=== PATIENT | male | born 1955 | race Caucasian/White ===

== ENCOUNTER 2018-06-12 07:07 | Day surgery (SDC) | payer MEDICARE, OTHER ==
[2018-06-12] MEDS: INSULIN REGULAR, HUMAN 100 UNIT/1 ML 3ML VIAL SC (09:13)
[2018-06-12 10:01] LABS: ANION GAP 14 (5-13); BLOOD UREA NITROGEN 61 mg/dl (7-20); CALCIUM 8.5 mg/dl (8.4-10.2); CARBON DIOXIDE 27 mmol/L (21-31); CHLORIDE 98 mmol/L (97-110); CREATININE 8.13 mg/dl (0.61-1.24); Estimated GFR 7 mL/min (>60); GLUCOSE 272 mg/dl (70-220); SODIUM 139 mmol/L (135-144)
[2018-06-12] MEDS ORDERED: THROMBIN 5000 UNIT VIAL (10:18)
[2018-06-12] MEDS ORDERED: MIDAZOLAM 1 MG/ML 2 ML INJ (10:23)
[2018-06-12] MEDS ORDERED: ROPIVACAINE 0.5 % 30 ML VIAL (10:25)
[2018-06-12] MEDS ORDERED: KETAMINE (50 MG/ML) 10 ML VIAL (10:56)
[2018-06-12] MEDS: LIDOCAINE 1% (STERILE-PAK) 30 ML INJ (10:58)
[2018-06-12] MEDS: GELATIN SIZE 100 SPONGE (11:05)
[2018-06-12] MEDS: HEPARIN 1000 UNITS/ML 10 ML INJ IRR (11:06)
[2018-06-12] MEDS ORDERED: ETOMIDATE 20 MG INJ (11:39)
[2018-06-12] MEDS ORDERED: CEFAZOLIN 1 GM INJ (11:39)
[2018-06-12] MEDS ORDERED: LIDOCAINE 2% (SDV) 5 ML INJ (11:39)
[2018-06-12] MEDS ORDERED: LABETALOL HCL 20MG INJ IV (12:00)
[2018-06-12] MEDS ORDERED: NALOXONE (0.4 MG/ML) INJ IV (12:00)
[2018-06-12] MEDS ORDERED: HYDROmorphONE 1 MG/5 ML IV SYRINGE IV ×2 (12:00→12:10)
[2018-06-12] MEDS ORDERED: hydrALAzine 20 MG INJ IV (12:00)
[2018-06-12] MEDS ORDERED: ONDANSETRON 4 MG INJ IV (12:00)
[2018-06-12] MEDS ORDERED: DIPHENHYDRAMINE 50 MG INJ IV (12:00)
[2018-06-12] MEDS ORDERED: METOCLOPRAMIDE 10 MG INJ IV (12:00)
[2018-06-12] MEDS: HYDROmorphONE 1 MG/5 ML IV SYRINGE IV ×2 (12:26→12:37)
[2018-06-12] MEDS: FENTAnyl 50 MCG/ML VIAL IV (12:40)
== END 2018-06-12 14:20 | disposition home or self-care (01) ==
LOC: SDS 07:07
DX: I12.0 Hypertensive chronic kidney disease with stage 5 chronic kidney disease or end stage renal disease (principal); E11.22 Type 2 diabetes mellitus with diabetic chronic kidney disease; N18.6 End stage renal disease; Z99.2 Dependence on renal dialysis
CPT/HCPCS: 36821; 80048; 82962

== ENCOUNTER 2018-07-11 08:45 | Day surgery (SDC) | payer MEDICARE, OTHER ==
[2018-07-11 09:46] LABS: ADD MAN DIFF? NO
[2018-07-11 09:49] LABS: WHITE BLOOD COUNT 8.3 10^3/ul (4.8-10.8)
[2018-07-11 09:49] LABS: BASOPHIL # 0.1 10^3/ul (0.0-0.1); EOSINOPHILS # 0.3 10^3/ul (0.0-0.5); EOSINOPHILS % 3.8 % (0.0-7.0); HEMOGLOBIN 9.6 g/dl (14.0-18.0); LYMPHOCYTES # 2.2 10^3/ul (0.8-2.9); LYMPHOCYTES % 26.2 % (15.0-51.0); MEAN CORPUSCULAR HEMOGLOBIN 30.9 pg (29.0-33.0); MEAN CORPUSCULAR HGB CONC 33.1 g/dl (32.0-37.0); MEAN CORPUSCULAR VOLUME 93.2 fl (82.0-101.0); MEAN PLATELET VOLUME 11.1 fl (7.4-10.4); MONOCYTES % 11.6 % (0.0-11.0); NEUTROPHIL # 4.7 10^3/ul (1.6-7.5); NEUTROPHILS % 56.3 % (39.0-77.0); PLATELET COUNT 288 10^3/UL (140-415); RED BLOOD COUNT 3.11 10^6/ul (4.70-6.10); RED CELL DISTRIBUTION WIDTH 14.2 % (11.5-14.5)
[2018-07-11] MEDS: INSULIN REGULAR, HUMAN 100 UNIT/1 ML 3ML VIAL SC ×2 (09:57→10:18)
[2018-07-11 09:58] LABS: HOLD TRANSMISSIONS 1
[2018-07-11 10:07] LABS: ALANINE AMINOTRANSFERASE 11 IU/L (13-69); ALBUMIN 4.1 g/dl (3.3-4.9); ALBUMIN/GLOBULIN RATIO 1.07; ALKALINE PHOSPHATASE 139 IU/L (42-121); ANION GAP 15 (5-13); ASPARTATE AMINO TRANSFERASE 14 IU/L (15-46); BILIRUBIN,INDIRECT 0.7 mg/dl (0-1.1); BILIRUBIN,TOTAL 0.7 mg/dl (0.2-1.3); CALCIUM 8.6 mg/dl (8.4-10.2); CARBON DIOXIDE 33 mmol/L (21-31); CHLORIDE 89 mmol/L (97-110); Estimated GFR 12 mL/min (>60); GLUCOSE 290 mg/dl (70-220); POTASSIUM 4.5 mmol/L (3.5-5.1); SODIUM 137 mmol/L (135-144); TOTAL PROTEIN 7.9 g/dl (6.1-8.1)
[2018-07-11 10:09] LABS: INR 0.99; PROTIME 13.2 Sec (11.9-14.9)
[2018-07-11 10:10] LABS: PARTIAL THROMBOPLASTIN TIME 29.5 Sec (23.0-35.0)
[2018-07-11 10:15] LABS: BLOOD UREA NITROGEN 33 mg/dl (7-20); CREATININE 4.98 mg/dl (0.61-1.24)
[2018-07-11] MEDS ORDERED: LIDOCAINE 1% (STERILE-PAK) 30 ML INJ (10:42)
[2018-07-11] MEDS ORDERED: HEPARIN 1000 UNITS/ML 10 ML INJ (10:42)
[2018-07-11] MEDS ORDERED: GELATIN SIZE 100 SPONGE (10:42)
[2018-07-11] MEDS ORDERED: THROMBIN 5000 UNIT VIAL (10:42)
[2018-07-11] MEDS ORDERED: CLINDAMYCIN 900 MG/D5W (PMX) 50 ML IVPB (11:10)
[2018-07-11] MEDS ORDERED: PROPOFOL 20 ML (11:10)
[2018-07-11] MEDS: LIDOCAINE 1% (MPF) 30 ML INJ INJ (11:10)
[2018-07-11] MEDS ORDERED: LIDOCAINE 2% (SDV) 5 ML INJ (11:10)
[2018-07-11] MEDS: HEPARIN 1000 UNITS/ML 10 ML INJ IRR (11:10)
[2018-07-11] MEDS ORDERED: MEPERIDINE 100 MG INJ (11:42)
[2018-07-11] MEDS ORDERED: ONDANSETRON 4 MG INJ (11:46)
[2018-07-11] MEDS ORDERED: PHENYLephrine (100 MCG/ML) 5ML SYG (12:21)
[2018-07-11] MEDS ORDERED: EPHEDrine SULFATE 50 MG/5 ML SYG (12:21)
[2018-07-11] MEDS ORDERED: hydrALAzine 20 MG INJ IV (13:00)
[2018-07-11] MEDS ORDERED: MEPERIDINE 25 MG INJ IV (13:00)
[2018-07-11] MEDS ORDERED: FENTAnyl 50 MCG/ML VIAL IV ×2 (13:00)
[2018-07-11] MEDS ORDERED: MIDAZOLAM 1 MG/ML 2 ML INJ IV (13:00)
[2018-07-11] MEDS ORDERED: DIPHENHYDRAMINE 50 MG INJ IV (13:00)
[2018-07-11] MEDS ORDERED: HYDROmorphONE 1 MG/5 ML IV SYRINGE IV ×2 (13:00)
[2018-07-11] MEDS ORDERED: OXYCODONE/ACETAMINOPHEN (5/325) TAB PO (13:00)
[2018-07-11] MEDS ORDERED: METOCLOPRAMIDE 10 MG INJ IV (13:00)
[2018-07-11] MEDS ORDERED: LABETALOL HCL 20MG INJ IV (13:00)
[2018-07-11] MEDS ORDERED: ONDANSETRON 4 MG INJ IV (13:00)
[2018-07-11] MEDS ORDERED: EPHEDrine SULFATE 50 MG/5 ML SYG IV (13:00)
[2018-07-11] MEDS: OXYCODONE/ACETAMINOPHEN (5/325) TAB PO (14:18)
== END 2018-07-11 15:42 | disposition home or self-care (01) ==
LOC: SDS 08:45
DX: I12.0 Hypertensive chronic kidney disease with stage 5 chronic kidney disease or end stage renal disease (principal); N18.6 End stage renal disease; I10 Essential (primary) hypertension; E11.9 Type 2 diabetes mellitus without complications
CPT/HCPCS: 36821; 80053; 82962; 85025; 85610; 85730; 93005

== ENCOUNTER 2019-01-28 21:00 | Inpatient (IN) | payer MEDICARE, OTHER ==
[2019-01-29 02:37] LABS: ADD MAN DIFF? NO
[2019-01-29 02:41] LABS: ABNORMAL IP MESSAGE 1; BASOPHIL # 0.1 10^3/ul (0.0-0.1); BASOPHILS % 0.4 % (0.0-2.0); EOSINOPHILS # 0.1 10^3/ul (0.0-0.5); EOSINOPHILS % 0.4 % (0.0-7.0); HEMATOCRIT 30.7 % (42.0-52.0); HEMOGLOBIN 9.9 g/dl (14.0-18.0); LYMPHOCYTES # 0.5 10^3/ul (0.8-2.9); LYMPHOCYTES % 3.2 % (15.0-51.0); MEAN CORPUSCULAR HEMOGLOBIN 30.4 pg (29.0-33.0); MEAN CORPUSCULAR HGB CONC 32.2 g/dl (32.0-37.0); MEAN CORPUSCULAR VOLUME 94.2 fl (82.0-101.0); MEAN PLATELET VOLUME 11.1 fl (7.4-10.4); MONOCYTES % 6.4 % (0.0-11.0); NEUTROPHIL # 13.9 10^3/ul (1.6-7.5); NEUTROPHILS % 88.6 % (39.0-77.0); PLATELET COUNT 236 10^3/UL (140-415); POSITIVE DIFF @See below; RED BLOOD COUNT 3.26 10^6/ul (4.70-6.10); RED CELL DISTRIBUTION WIDTH 14.7 % (11.5-14.5)
[2019-01-29 02:41] LABS: WHITE BLOOD COUNT 15.7 10^3/ul (4.8-10.8)
[2019-01-29 03:00] LABS: INR 1.21; PROTIME 15.4 Sec (11.9-14.9); PT RATIO 1.2
[2019-01-29 03:01] LABS: ALANINE AMINOTRANSFERASE 41 IU/L (13-69); ALBUMIN 3.9 g/dl (3.3-4.9); ALKALINE PHOSPHATASE 352 IU/L (42-121); AMYLASE 83 U/L (11-123); ANION GAP 17 (5-13); ASPARTATE AMINO TRANSFERASE 31 IU/L (15-46); BILIRUBIN,INDIRECT 0.5 mg/dl (0-1.1); BILIRUBIN,TOTAL 0.5 mg/dl (0.2-1.3); BLOOD UREA NITROGEN 55 mg/dl (7-20); CARBON DIOXIDE 31 mmol/L (21-31); CHLORIDE 90 mmol/L (97-110); CREATININE 8.09 mg/dl (0.61-1.24); Estimated GFR 7 mL/min (>60); GLUCOSE 228 mg/dl (70-220); LIPASE 46 U/L (23-300); POTASSIUM 4.2 mmol/L (3.5-5.1); SODIUM 138 mmol/L (135-144); TOTAL PROTEIN 7.8 g/dl (6.1-8.1)
[2019-01-29 03:13] LABS: TROPONIN-I 0.078 ng/ml (0.000-0.120)
[2019-01-29 03:15] LABS: B-TYPE NATRIURETIC PEPTIDE 20600 PG/ML (0-125)
[2019-01-29] MEDS: CEFEPIME 2GM/50 ML (PMX) 50 ML IVPB (03:48)
[2019-01-29 04:00] LABS: ADD UMIC YES; UR ASCORBIC ACID NEGATIVE (NEGATIVE); UR BILIRUBIN (Dip) NEGATIVE (NEGATIVE); UR BLOOD (Dip) NEGATIVE (NEGATIVE); UR CLARITY CLEAR (CLEAR); UR COLOR YELLOW (YELLOW); UR GLUCOSE (Dip) 2+ mg/dL (NEGATIVE); UR KETONES (Dip) NEGATIVE (NEGATIVE); UR LEUKOCYTE ESTERASE (Dip) NEGATIVE Leu/ul (NEGATIVE); UR MUCUS FEW /HPF (NONE SEEN); UR NITRITE (Dip) NEGATIVE (NEGATIVE); UR RBC 2 /HPF (0-5); UR SPECIFIC GRAVITY (Dip) 1.017 (1.003-1.030); UR TOTAL PROTEIN (Dip) 3+ mg/dl (NEGATIVE); UR UROBILINOGEN (Dip) NEGATIVE (NEGATIVE); UR WBC 4 /HPF (0-5)
[2019-01-29] MEDS ORDERED: ACETAMINOPHEN 325 MG TAB PO ×2 (04:00→07:00)
[2019-01-29] MEDS ORDERED: ONDANSETRON 4 MG INJ IV ×2 (04:00→07:00)
[2019-01-29] MEDS: VANCOMYCIN 1 GM (PMX) 250 ML IVPB (04:11)
[2019-01-29 06:22] LABS: INR 1.25; PROTIME 15.8 Sec (11.9-14.9); PT RATIO 1.2
[2019-01-29 06:23] LABS: PARTIAL THROMBOPLASTIN TIME 31.2 Sec (23.0-35.0)
[2019-01-29 06:24] LABS: LACTIC ACID 1.5 mmol/L (0.5-2.0)
[2019-01-29] MEDS ORDERED: NITROGLYCERIN (SL) 0.4 MG TAB SL (07:00)
[2019-01-29] MEDS ORDERED: NON-FORMULARY/PATIENT OWN MED (Insulin Lispro (Humalog Kwikpen U-100) 5 UNIT) SQ (07:00)
[2019-01-29] MEDS ORDERED: NACL 0.9% 3 ML SYG IV (07:00)
[2019-01-29] MEDS ORDERED: ALBUTEROL/IPRATROPIUM (NEB) 3 ML AMP HHN (07:00)
[2019-01-29 08:14] LABS: CREATINE KINASE 102 IU/L (23-200)
[2019-01-29 08:27] LABS: CK INDEX 2.3; TROPONIN-I 0.079 ng/ml (0.000-0.120)
[2019-01-29] MEDS: CALCIUM ACETATE 667 MG CAP PO ×3 (08:56→17:51)
[2019-01-29] MEDS: FUROSEMIDE 40 MG TAB PO (08:57)
[2019-01-29] MEDS: NIFEdipine (XL) 30 MG TAB PO (08:57)
[2019-01-29] MEDS: HEPARIN 5,000 UNIT/1 ML VIAL SC ×2 (09:19→21:34)
[2019-01-29] MEDS ORDERED: GLUCOSE GEL 15 GRAM TUBE PO ×2 (10:00)
[2019-01-29] MEDS ORDERED: GLUCAGON 1 MG INJ IM (10:00)
[2019-01-29] MEDS ORDERED: GLUCOSE GEL 15 GRAM TUBE BUCCAL (10:00)
[2019-01-29] MEDS ORDERED: DEXTROSE 50% 50 ML SYRINGE IV ×2 (10:00)
[2019-01-29] MEDS: ALLOPURINOL 100 MG TAB PO (11:28)
[2019-01-29] MEDS: INSULIN ASPART [NOVOLOG] 3 ML PEN SC ×3 (12:33→21:00)
[2019-01-29] MEDS: LEVOFLOXACIN 500MG/D5W (PMX) 100 ML IVPB (12:35)
[2019-01-29] MEDS: RANITIDINE 150 MG TAB PO ×2 (13:02→21:17)
[2019-01-29] MEDS: FISH OIL 1,000 MG CAP PO ×2 (13:09→21:18)
[2019-01-29 13:13] LABS: HEPATITIS B SURFACE ANTIGEN NEGATIVE (NEGATIVE)
[2019-01-29 13:29] LABS: HEPATITIS B SURFACE ANTIBODY POSITIVE (NEGATIVE)
[2019-01-29 13:29] LABS: HEMOGLOBIN A1C 6.2 % (0-5.9)
[2019-01-29] MEDS ORDERED: VANCOMYCIN IV PER PHARMACY XX (18:30)
[2019-01-29] MEDS ORDERED: RANITIDINE 150 MG TAB PO (21:00)
[2019-01-29] MEDS: ATORVASTATIN 80 MG TAB PO (21:18)
[2019-01-29] MEDS: MIRTAZAPINE 15 MG TAB PO (21:18)
[2019-01-29] MEDS: TAMSULOSIN (SR) 0.4 MG CAP PO (21:19)
[2019-01-29] MEDS: INSULIN GLARGINE [LANTus] (100 UNITS/ML) SYG SC (21:35)
[2019-01-29] MEDS: VANCOMYCIN 500 MG (PMX) 100 ML IVPB (22:36)
[2019-01-30] MEDS: ACCU-CHEK XX (02:00)
[2019-01-30 06:46] LABS: ADD MAN DIFF? NO
[2019-01-30 06:48] LABS: WHITE BLOOD COUNT 8.3 10^3/ul (4.8-10.8)
[2019-01-30 06:48] LABS: BASOPHIL # 0.1 10^3/ul (0.0-0.1); BASOPHILS % 0.7 % (0.0-2.0); EOSINOPHILS # 0.1 10^3/ul (0.0-0.5); EOSINOPHILS % 1.6 % (0.0-7.0); HEMATOCRIT 27.3 % (42.0-52.0); HEMOGLOBIN 8.8 g/dl (14.0-18.0); LYMPHOCYTES # 0.7 10^3/ul (0.8-2.9); LYMPHOCYTES % 8.3 % (15.0-51.0); MEAN CORPUSCULAR HEMOGLOBIN 30.7 pg (29.0-33.0); MEAN CORPUSCULAR HGB CONC 32.2 g/dl (32.0-37.0); MEAN CORPUSCULAR VOLUME 95.1 fl (82.0-101.0); MEAN PLATELET VOLUME 11.4 fl (7.4-10.4); MONOCYTE # 0.7 10^3/ul (0.3-0.9); MONOCYTES % 8.1 % (0.0-11.0); NEUTROPHIL # 6.8 10^3/ul (1.6-7.5); NEUTROPHILS % 81.1 % (39.0-77.0); PLATELET COUNT 182 10^3/UL (140-415); RED BLOOD COUNT 2.87 10^6/ul (4.70-6.10); RED CELL DISTRIBUTION WIDTH 14.8 % (11.5-14.5)
[2019-01-30 07:14] LABS: ALANINE AMINOTRANSFERASE 34 IU/L (13-69); ALBUMIN 3.4 g/dl (3.3-4.9); ALKALINE PHOSPHATASE 282 IU/L (42-121); ANION GAP 13 (5-13); ASPARTATE AMINO TRANSFERASE 22 IU/L (15-46); BILIRUBIN,INDIRECT 0.5 mg/dl (0-1.1); BILIRUBIN,TOTAL 0.5 mg/dl (0.2-1.3); BLOOD UREA NITROGEN 40 mg/dl (7-20); CALCIUM 8.2 mg/dl (8.4-10.2); CARBON DIOXIDE 32 mmol/L (21-31); CHLORIDE 94 mmol/L (97-110); CHOLESTEROL 102 mg/dl (100-200); CREATININE 5.71 mg/dl (0.61-1.24); Estimated GFR 10 mL/min (>60); GLUCOSE 209 mg/dl (70-220); HDL CHOLESTEROL 17 mg/dl (30-78); LDL CHOLESTEROL,CALCULATED 49 mg/dl; MAGNESIUM 1.8 mg/dl (1.7-2.5); POTASSIUM 4.3 mmol/L (3.5-5.1); SODIUM 139 mmol/L (135-144); TOTAL PROTEIN 6.8 g/dl (6.1-8.1); TRIGLYCERIDES 181 mg/dl (0-149)
[2019-01-30] MEDS: INSULIN ASPART [NOVOLOG] 3 ML PEN SC ×5 (08:18→21:32)
[2019-01-30] MEDS: CALCIUM ACETATE 667 MG CAP PO ×3 (08:53→17:05)
[2019-01-30] MEDS: FISH OIL 1,000 MG CAP PO ×2 (08:54→21:06)
[2019-01-30] MEDS: ALLOPURINOL 100 MG TAB PO (08:55)
[2019-01-30] MEDS: FUROSEMIDE 40 MG TAB PO (08:55)
[2019-01-30] MEDS: NIFEdipine (XL) 30 MG TAB PO (08:55)
[2019-01-30] MEDS: HEPARIN 5,000 UNIT/1 ML VIAL SC ×2 (09:15→21:32)
[2019-01-30] MEDS: EPOETIN ALFA-EPBX (ESRD) 10,000 UNIT/ML VIAL SC (11:13)
[2019-01-30] MEDS: MEROPENEM 1 GM/50ML(PMX) 50 ML IVPB (11:22)
[2019-01-30] MEDS: MIRTAZAPINE 15 MG TAB PO (21:06)
[2019-01-30] MEDS: ATORVASTATIN 80 MG TAB PO (21:06)
[2019-01-30] MEDS: TAMSULOSIN (SR) 0.4 MG CAP PO (21:06)
[2019-01-30] MEDS: RANITIDINE 150 MG TAB PO (21:06)
[2019-01-30] MEDS: INSULIN GLARGINE [LANTus] (100 UNITS/ML) SYG SC (21:31)
[2019-01-31] MEDS: ACCU-CHEK XX (01:50)
[2019-01-31 05:18] LABS: ADD MAN DIFF? NO
[2019-01-31 05:48] LABS: ANION GAP 18 (5-13); BLOOD UREA NITROGEN 69 mg/dl (7-20); CALCIUM 8.4 mg/dl (8.4-10.2); CARBON DIOXIDE 26 mmol/L (21-31); CHLORIDE 92 mmol/L (97-110); CREATININE 7.69 mg/dl (0.61-1.24); Estimated GFR 7 mL/min (>60); GLUCOSE 125 mg/dl (70-220); MAGNESIUM 2.2 mg/dl (1.7-2.5); PHOSPHORUS 6.1 mg/dl (2.5-4.9); POTASSIUM 4.5 mmol/L (3.5-5.1); SODIUM 136 mmol/L (135-144)
[2019-01-31 05:51] LABS: VANCOMYCIN,RANDOM 10.3 ug/ml
[2019-01-31 06:52] LABS: WHITE BLOOD COUNT 7.6 10^3/ul (4.8-10.8)
[2019-01-31 06:52] LABS: BASOPHIL # 0.1 10^3/ul (0.0-0.1); BASOPHILS % 1.2 % (0.0-2.0); EOSINOPHILS # 0.4 10^3/ul (0.0-0.5); EOSINOPHILS % 5.1 % (0.0-7.0); HEMATOCRIT 27.9 % (42.0-52.0); HEMOGLOBIN 9.3 g/dl (14.0-18.0); LYMPHOCYTES # 1.2 10^3/ul (0.8-2.9); LYMPHOCYTES % 15.9 % (15.0-51.0); MEAN CORPUSCULAR HEMOGLOBIN 31.1 pg (29.0-33.0); MEAN CORPUSCULAR HGB CONC 33.3 g/dl (32.0-37.0); MEAN CORPUSCULAR VOLUME 93.3 fl (82.0-101.0); MEAN PLATELET VOLUME 11.9 fl (7.4-10.4); MONOCYTE # 0.9 10^3/ul (0.3-0.9); MONOCYTES % 11.6 % (0.0-11.0); NEUTROPHILS % 65.7 % (39.0-77.0); PLATELET COUNT 213 10^3/UL (140-415); RED BLOOD COUNT 2.99 10^6/ul (4.70-6.10); RED CELL DISTRIBUTION WIDTH 14.7 % (11.5-14.5)
[2019-01-31] MEDS: INSULIN ASPART [NOVOLOG] 3 ML PEN SC ×5 (07:55→20:54)
[2019-01-31] MEDS: NIFEdipine (XL) 30 MG TAB PO (08:10)
[2019-01-31] MEDS: CALCIUM ACETATE 667 MG CAP PO ×3 (08:10→17:39)
[2019-01-31] MEDS: ALLOPURINOL 100 MG TAB PO (08:12)
[2019-01-31] MEDS: FISH OIL 1,000 MG CAP PO ×2 (08:12→20:21)
[2019-01-31] MEDS: HEPARIN 5,000 UNIT/1 ML VIAL SC ×2 (08:14→20:22)
[2019-01-31] MEDS ORDERED: LEVOFLOXACIN 250MG/D5W (PMX) 50 ML IVPB (10:00)
[2019-01-31] MEDS ORDERED: CALCIUM CARBONATE 500 MG CHEW TAB PO (12:30)
[2019-01-31] MEDS: MEROPENEM 1 GM/50ML(PMX) 50 ML IVPB (13:50)
[2019-01-31] MEDS: VANCOMYCIN 1 GM 250 ML IVPB (14:27)
[2019-01-31] MEDS: EPOETIN ALFA-EPBX (ESRD) 10,000 UNIT/ML VIAL SC (16:19)
[2019-01-31] MEDS: TAMSULOSIN (SR) 0.4 MG CAP PO (20:21)
[2019-01-31] MEDS: ATORVASTATIN 80 MG TAB PO (20:21)
[2019-01-31] MEDS: RANITIDINE 150 MG TAB PO (20:21)
[2019-01-31] MEDS: MIRTAZAPINE 15 MG TAB PO (20:21)
[2019-01-31] MEDS: INSULIN GLARGINE [LANTus] (100 UNITS/ML) SYG SC (20:55)
[2019-02-01] MEDS: ACCU-CHEK XX (01:27)
[2019-02-01 06:24] LABS: ADD MAN DIFF? NO
[2019-02-01 06:34] LABS: BASOPHIL # 0.1 10^3/ul (0.0-0.1); EOSINOPHILS # 0.6 10^3/ul (0.0-0.5); EOSINOPHILS % 7.2 % (0.0-7.0); HEMATOCRIT 29.4 % (42.0-52.0); HEMOGLOBIN 9.4 g/dl (14.0-18.0); LYMPHOCYTES # 1.6 10^3/ul (0.8-2.9); LYMPHOCYTES % 19.4 % (15.0-51.0); MEAN CORPUSCULAR HEMOGLOBIN 29.9 pg (29.0-33.0); MEAN CORPUSCULAR VOLUME 93.6 fl (82.0-101.0); MEAN PLATELET VOLUME 11.5 fl (7.4-10.4); MONOCYTE # 1.1 10^3/ul (0.3-0.9); MONOCYTES % 13.5 % (0.0-11.0); NEUTROPHIL # 4.7 10^3/ul (1.6-7.5); NEUTROPHILS % 57.5 % (39.0-77.0); PLATELET COUNT 238 10^3/UL (140-415); RED BLOOD COUNT 3.14 10^6/ul (4.70-6.10)
[2019-02-01 06:34] LABS: WHITE BLOOD COUNT 8.1 10^3/ul (4.8-10.8)
[2019-02-01 07:06] LABS: ANION GAP 15 (5-13); BLOOD UREA NITROGEN 51 mg/dl (7-20); CALCIUM 8.6 mg/dl (8.4-10.2); CARBON DIOXIDE 26 mmol/L (21-31); CHLORIDE 97 mmol/L (97-110); CREATININE 6.19 mg/dl (0.61-1.24); Estimated GFR 9 mL/min (>60); GLUCOSE 135 mg/dl (70-220); POTASSIUM 5.1 mmol/L (3.5-5.1); SODIUM 138 mmol/L (135-144)
[2019-02-01] MEDS: INSULIN ASPART [NOVOLOG] 3 ML PEN SC ×5 (07:55→20:12)
[2019-02-01] MEDS: NIFEdipine (XL) 30 MG TAB PO (08:35)
[2019-02-01] MEDS: ALLOPURINOL 100 MG TAB PO (08:35)
[2019-02-01] MEDS: FISH OIL 1,000 MG CAP PO ×2 (08:35→20:11)
[2019-02-01] MEDS: CALCIUM ACETATE 667 MG CAP PO ×3 (08:35→17:46)
[2019-02-01] MEDS: HEPARIN 5,000 UNIT/1 ML VIAL SC ×2 (10:04→20:43)
[2019-02-01] MEDS: MEROPENEM 1 GM/50ML(PMX) 50 ML IVPB (11:24)
[2019-02-01] MEDS: GUAIFENESIN 20 MG/ML 5ML CUP PO (17:45)
[2019-02-01] MEDS: TAMSULOSIN (SR) 0.4 MG CAP PO (20:11)
[2019-02-01] MEDS: RANITIDINE 150 MG TAB PO (20:11)
[2019-02-01] MEDS: ATORVASTATIN 80 MG TAB PO (20:11)
[2019-02-01] MEDS: MIRTAZAPINE 15 MG TAB PO (20:11)
[2019-02-01] MEDS: INSULIN GLARGINE [LANTus] (100 UNITS/ML) SYG SC (20:43)
[2019-02-01] MEDS: CEPASTAT LOZENGE MT (21:41)
[2019-02-01] MEDS: ZOLPIDEM 5 MG TAB PO (21:41)
[2019-02-02] MEDS: ACCU-CHEK XX (01:50)
[2019-02-02 07:31] LABS: ADD MAN DIFF? NO
[2019-02-02 07:38] LABS: BASOPHIL # 0.1 10^3/ul (0.0-0.1); BASOPHILS % 1.1 % (0.0-2.0); EOSINOPHILS # 0.6 10^3/ul (0.0-0.5); EOSINOPHILS % 7.2 % (0.0-7.0); HEMOGLOBIN 9.8 g/dl (14.0-18.0); LYMPHOCYTES % 22.6 % (15.0-51.0); MEAN CORPUSCULAR HEMOGLOBIN 30.8 pg (29.0-33.0); MEAN CORPUSCULAR HGB CONC 32.7 g/dl (32.0-37.0); MEAN CORPUSCULAR VOLUME 94.3 fl (82.0-101.0); MEAN PLATELET VOLUME 11.4 fl (7.4-10.4); MONOCYTES % 11.5 % (0.0-11.0); NEUTROPHIL # 4.8 10^3/ul (1.6-7.5); NEUTROPHILS % 55.3 % (39.0-77.0); PLATELET COUNT 254 10^3/UL (140-415); RED BLOOD COUNT 3.18 10^6/ul (4.70-6.10)
[2019-02-02 07:38] LABS: WHITE BLOOD COUNT 8.8 10^3/ul (4.8-10.8)
[2019-02-02] MEDS: INSULIN ASPART [NOVOLOG] 3 ML PEN SC ×6 (07:55→21:00)
[2019-02-02 08:10] LABS: ANION GAP 15 (5-13); BLOOD UREA NITROGEN 69 mg/dl (7-20); CARBON DIOXIDE 24 mmol/L (21-31); CHLORIDE 98 mmol/L (97-110); CREATININE 8.02 mg/dl (0.61-1.24); Estimated GFR 7 mL/min (>60); GLUCOSE 84 mg/dl (70-220); POTASSIUM 5.8 mmol/L (3.5-5.1); SODIUM 137 mmol/L (135-144)
[2019-02-02 08:13] LABS: VANCOMYCIN,RANDOM 16.7 ug/ml
[2019-02-02] MEDS: ALLOPURINOL 100 MG TAB PO (08:18)
[2019-02-02] MEDS: NIFEdipine (XL) 30 MG TAB PO (08:19)
[2019-02-02] MEDS: CALCIUM ACETATE 667 MG CAP PO ×3 (08:19→17:21)
[2019-02-02] MEDS: FISH OIL 1,000 MG CAP PO ×2 (08:19→20:44)
[2019-02-02] MEDS: HEPARIN 5,000 UNIT/1 ML VIAL SC ×2 (08:22→21:01)
[2019-02-02] MEDS: MEROPENEM 1 GM/50ML(PMX) 50 ML IVPB (11:26)
[2019-02-02] MEDS: VANCOMYCIN 1 GM 250 ML IVPB (15:23)
[2019-02-02] MEDS: RANITIDINE 150 MG TAB PO (20:43)
[2019-02-02] MEDS: ATORVASTATIN 80 MG TAB PO (20:44)
[2019-02-02] MEDS: TAMSULOSIN (SR) 0.4 MG CAP PO (20:44)
[2019-02-02] MEDS: MIRTAZAPINE 15 MG TAB PO (20:44)
[2019-02-02] MEDS: INSULIN GLARGINE [LANTus] (100 UNITS/ML) SYG SC (21:01)
[2019-02-03] MEDS: ACCU-CHEK XX (02:00)
[2019-02-03] MEDS: ZOLPIDEM 5 MG TAB PO (02:29)
[2019-02-03 06:44] LABS: ADD MAN DIFF? NO
[2019-02-03 06:47] LABS: BASOPHIL # 0.1 10^3/ul (0.0-0.1); BASOPHILS % 1.1 % (0.0-2.0); EOSINOPHILS # 0.6 10^3/ul (0.0-0.5); HEMATOCRIT 29.9 % (42.0-52.0); HEMOGLOBIN 9.8 g/dl (14.0-18.0); LYMPHOCYTES # 1.8 10^3/ul (0.8-2.9); LYMPHOCYTES % 21.9 % (15.0-51.0); MEAN CORPUSCULAR HEMOGLOBIN 30.3 pg (29.0-33.0); MEAN CORPUSCULAR HGB CONC 32.8 g/dl (32.0-37.0); MEAN CORPUSCULAR VOLUME 92.6 fl (82.0-101.0); MEAN PLATELET VOLUME 11.2 fl (7.4-10.4); MONOCYTE # 0.9 10^3/ul (0.3-0.9); NEUTROPHIL # 4.5 10^3/ul (1.6-7.5); NEUTROPHILS % 55.3 % (39.0-77.0); PLATELET COUNT 260 10^3/UL (140-415); RED BLOOD COUNT 3.23 10^6/ul (4.70-6.10)
[2019-02-03 06:47] LABS: WHITE BLOOD COUNT 8.2 10^3/ul (4.8-10.8)
[2019-02-03 07:08] LABS: ANION GAP 17 (5-13); BLOOD UREA NITROGEN 85 mg/dl (7-20); CALCIUM 8.9 mg/dl (8.4-10.2); CARBON DIOXIDE 22 mmol/L (21-31); CHLORIDE 100 mmol/L (97-110); CREATININE 9.27 mg/dl (0.61-1.24); Estimated GFR 6 mL/min (>60); GLUCOSE 102 mg/dl (70-220); POTASSIUM 5.9 mmol/L (3.5-5.1); SODIUM 139 mmol/L (135-144)
[2019-02-03] MEDS: INSULIN ASPART [NOVOLOG] 3 ML PEN SC ×3 (07:55→17:19)
[2019-02-03] MEDS: FISH OIL 1,000 MG CAP PO (08:39)
[2019-02-03] MEDS: NIFEdipine (XL) 30 MG TAB PO (08:40)
[2019-02-03] MEDS: CALCIUM ACETATE 667 MG CAP PO ×3 (08:40→17:19)
[2019-02-03] MEDS: ALLOPURINOL 100 MG TAB PO (08:40)
[2019-02-03] MEDS: HEPARIN 5,000 UNIT/1 ML VIAL SC (08:46)
[2019-02-03 15:02] LABS: ANION GAP 12 (5-13); BLOOD UREA NITROGEN 39 mg/dl (7-20); CARBON DIOXIDE 28 mmol/L (21-31); CHLORIDE 99 mmol/L (97-110); Estimated GFR 12 mL/min (>60); GLUCOSE 172 mg/dl (70-220); POTASSIUM 4.5 mmol/L (3.5-5.1); SODIUM 139 mmol/L (135-144)
[2019-02-03] MEDS: EPOETIN ALFA-EPBX (ESRD) 10,000 UNIT/ML VIAL SC (17:00)
== END 2019-02-03 17:59 | disposition home or self-care (01) | DRG 871 ==
LOC: FTE 21:00 → TEL 01-29 03:55
PROC: 5A1D80Z Performance of Urinary Filtration, Prolonged Intermittent, 6-18 hours Per Day (ICD-10-PCS; principal; 2019-01-29)
DX: A40.1 Sepsis due to streptococcus, group B (principal); N18.6 End stage renal disease; I12.0 Hypertensive chronic kidney disease with stage 5 chronic kidney disease or end stage renal disease; N39.0 Urinary tract infection, site not specified; E10.22 Type 1 diabetes mellitus with diabetic chronic kidney disease; Z99.2 Dependence on renal dialysis; E10.621 Type 1 diabetes mellitus with foot ulcer; D63.1 Anemia in chronic kidney disease; M89.8X9 Other specified disorders of bone, unspecified site; E83.89 Other disorders of mineral metabolism; L97.519 Non-pressure chronic ulcer of other part of right foot with unspecified severity; E66.9 Obesity, unspecified; Z68.31 Body mass index [BMI] 31.0-31.9, adult; E10.42 Type 1 diabetes mellitus with diabetic polyneuropathy; K31.84 Gastroparesis; E10.43 Type 1 diabetes mellitus with diabetic autonomic (poly)neuropathy
CPT/HCPCS: 71046; 76705; 80048; 80053; 80061; 80202; 81001; 82150; 82550; 82553; 82962; 83036; 83605; 83690; 83735; 83880; 84100; 84484; 85025; 85610; 85730; 86706; 87040-91; 87070; 87086; 87340; 90935; 93005; 93306; 96365; 99285-25

== ENCOUNTER 2019-02-24 20:22 | Inpatient (IN) | payer MEDICARE, OTHER ==
[2019-02-24] MEDS: morphine 4 MG/ML VIAL IV (22:49)
[2019-02-24] MEDS: ONDANSETRON 4 MG INJ IV (22:49)
[2019-02-24] MEDS: SOD CHLORIDE 0.9% 500 ML IV (22:49)
[2019-02-24] MEDS: CLINDAMYCIN 900 MG/D5W (PMX) 50 ML IVPB (22:55)
[2019-02-24 22:58] LABS: ADD MAN DIFF? NO
[2019-02-24 23:06] LABS: ADD UMIC YES; UR ASCORBIC ACID NEGATIVE (NEGATIVE); UR BILIRUBIN (Dip) NEGATIVE (NEGATIVE); UR BLOOD (Dip) NEGATIVE (NEGATIVE); UR CLARITY CLOUDY (CLEAR); UR COLOR YELLOW (YELLOW); UR GLUCOSE (Dip) 3+ mg/dL (NEGATIVE); UR KETONES (Dip) NEGATIVE (NEGATIVE); UR LEUKOCYTE ESTERASE (Dip) NEGATIVE Leu/ul (NEGATIVE); UR NITRITE (Dip) NEGATIVE (NEGATIVE); UR RBC 3 /HPF (0-5); UR SPECIFIC GRAVITY (Dip) 1.018 (1.003-1.030); UR SQUAMOUS EPITHELIAL CELL MODERATE /HPF (FEW); UR TOTAL PROTEIN (Dip) 3+ mg/dl (NEGATIVE); UR UROBILINOGEN (Dip) NEGATIVE (NEGATIVE); UR WBC 23 /HPF (0-5)
[2019-02-24 23:07] LABS: BASOPHIL # 0.1 10^3/ul (0.0-0.1); BASOPHILS % 0.8 % (0.0-2.0); EOSINOPHILS # 0.5 10^3/ul (0.0-0.5); EOSINOPHILS % 4.6 % (0.0-7.0); HEMATOCRIT 31.9 % (42.0-52.0); HEMOGLOBIN 10.1 g/dl (14.0-18.0); LYMPHOCYTES # 1.6 10^3/ul (0.8-2.9); LYMPHOCYTES % 15.1 % (15.0-51.0); MEAN CORPUSCULAR HEMOGLOBIN 29.6 pg (29.0-33.0); MEAN CORPUSCULAR HGB CONC 31.7 g/dl (32.0-37.0); MEAN CORPUSCULAR VOLUME 93.5 fl (82.0-101.0); MEAN PLATELET VOLUME 10.3 fl (7.4-10.4); MONOCYTE # 1.2 10^3/ul (0.3-0.9); MONOCYTES % 11.1 % (0.0-11.0); NEUTROPHILS % 67.6 % (39.0-77.0); PLATELET COUNT 327 10^3/UL (140-415); RED BLOOD COUNT 3.41 10^6/ul (4.70-6.10); RED CELL DISTRIBUTION WIDTH 15.2 % (11.5-14.5)
[2019-02-24 23:07] LABS: WHITE BLOOD COUNT 10.4 10^3/ul (4.8-10.8)
[2019-02-24 23:34] LABS: ALANINE AMINOTRANSFERASE 20 IU/L (13-69); ALBUMIN 4.3 g/dl (3.3-4.9); ALKALINE PHOSPHATASE 251 IU/L (42-121); ANION GAP 15 (5-13); ASPARTATE AMINO TRANSFERASE 22 IU/L (15-46); BILIRUBIN,INDIRECT 0.4 mg/dl (0-1.1); BILIRUBIN,TOTAL 0.4 mg/dl (0.2-1.3); BLOOD UREA NITROGEN 33 mg/dl (7-20); CALCIUM 9.7 mg/dl (8.4-10.2); CARBON DIOXIDE 32 mmol/L (21-31); CHLORIDE 94 mmol/L (97-110); CREATININE 5.74 mg/dl (0.61-1.24); Estimated GFR 10 mL/min (>60); GLUCOSE 122 mg/dl (70-220); LIPASE 53 U/L (23-300); POTASSIUM 4.5 mmol/L (3.5-5.1); SODIUM 141 mmol/L (135-144); TOTAL PROTEIN 8.6 g/dl (6.1-8.1)
[2019-02-24] MEDS: VANCOMYCIN 1 GM (PMX) 250 ML IVPB (23:52)
[2019-02-25] MEDS ORDERED: ONDANSETRON 4 MG INJ IV (01:00)
[2019-02-25] MEDS ORDERED: ACETAMINOPHEN 325 MG TAB PO ×2 (01:00→02:30)
[2019-02-25] MEDS ORDERED: NACL 0.9% 3 ML SYG IV (02:30)
[2019-02-25] MEDS ORDERED: HYDROCODONE/APAP (5/325) TAB PO (02:30)
[2019-02-25] MEDS ORDERED: ALBUTEROL/IPRATROPIUM (NEB) 3 ML AMP HHN (02:30)
[2019-02-25] MEDS: CLINDAMYCIN 600 MG/D5W (PMX) 50 ML IVPB ×3 (03:13→17:48)
[2019-02-25] MEDS ORDERED: GLUCAGON 1 MG INJ IM (03:30)
[2019-02-25] MEDS ORDERED: DEXTROSE 50% 50 ML SYRINGE IV ×2 (03:30)
[2019-02-25] MEDS ORDERED: GLUCOSE GEL 15 GRAM TUBE BUCCAL (03:30)
[2019-02-25] MEDS ORDERED: GLUCOSE GEL 15 GRAM TUBE PO ×2 (03:30)
[2019-02-25] MEDS: [UNRECOGNIZED DRUG - OTHER] XX ×2 (05:31→17:42)
[2019-02-25 06:16] LABS: ADD MAN DIFF? NO
[2019-02-25 06:23] LABS: WHITE BLOOD COUNT 10.1 10^3/ul (4.8-10.8)
[2019-02-25 06:23] LABS: BASOPHIL # 0.1 10^3/ul (0.0-0.1); EOSINOPHILS # 0.5 10^3/ul (0.0-0.5); EOSINOPHILS % 4.9 % (0.0-7.0); HEMATOCRIT 27.4 % (42.0-52.0); HEMOGLOBIN 8.6 g/dl (14.0-18.0); LYMPHOCYTES # 1.7 10^3/ul (0.8-2.9); LYMPHOCYTES % 16.7 % (15.0-51.0); MEAN CORPUSCULAR HEMOGLOBIN 29.8 pg (29.0-33.0); MEAN CORPUSCULAR HGB CONC 31.4 g/dl (32.0-37.0); MEAN CORPUSCULAR VOLUME 94.8 fl (82.0-101.0); MEAN PLATELET VOLUME 10.6 fl (7.4-10.4); MONOCYTES % 10.3 % (0.0-11.0); NEUTROPHIL # 6.7 10^3/ul (1.6-7.5); NEUTROPHILS % 66.5 % (39.0-77.0); PLATELET COUNT 277 10^3/UL (140-415); RED BLOOD COUNT 2.89 10^6/ul (4.70-6.10)
[2019-02-25 06:50] LABS: ALANINE AMINOTRANSFERASE 19 IU/L (13-69); ALBUMIN 4.1 g/dl (3.3-4.9); ALKALINE PHOSPHATASE 215 IU/L (42-121); ANION GAP 14 (5-13); ASPARTATE AMINO TRANSFERASE 17 IU/L (15-46); BILIRUBIN,INDIRECT 0.4 mg/dl (0-1.1); BILIRUBIN,TOTAL 0.4 mg/dl (0.2-1.3); BLOOD UREA NITROGEN 37 mg/dl (7-20); CALCIUM 8.8 mg/dl (8.4-10.2); CARBON DIOXIDE 29 mmol/L (21-31); CHLORIDE 97 mmol/L (97-110); CREATININE 6.09 mg/dl (0.61-1.24); Estimated GFR 9 mL/min (>60); GLUCOSE 126 mg/dl (70-220); MAGNESIUM 1.7 mg/dl (1.7-2.5); PHOSPHORUS 4.8 mg/dl (2.5-4.9); POTASSIUM 4.9 mmol/L (3.5-5.1); SODIUM 140 mmol/L (135-144); TOTAL PROTEIN 7.5 g/dl (6.1-8.1)
[2019-02-25] MEDS: INSULIN ASPART [NOVOLOG] 3 ML PEN SC ×7 (08:00→21:00)
[2019-02-25] MEDS: CITALOPRAM 10 MG TAB PO (08:11)
[2019-02-25] MEDS: FISH OIL 1,000 MG CAP PO ×2 (08:12→21:16)
[2019-02-25] MEDS: HYDROCODONE/APAP (5/325) TAB PO ×2 (08:13→21:10)
[2019-02-25] MEDS: ALLOPURINOL 100 MG TAB PO (08:13)
[2019-02-25] MEDS: CALCIUM ACETATE 667 MG CAP PO ×3 (08:14→17:44)
[2019-02-25] MEDS: HEPARIN 5,000 UNIT/1 ML VIAL SC ×2 (08:17→21:20)
[2019-02-25] MEDS: NIFEdipine (XL) 30 MG TAB PO (08:23)
[2019-02-25] MEDS: FUROSEMIDE 40 MG TAB PO (08:23)
[2019-02-25] MEDS ORDERED: NON-FORMULARY/PATIENT OWN MED (Omega-3/Dha/Epa/Fish Oil (Fish Oil 1,000 Mg Softgel) 1 EACH PO (09:00)
[2019-02-25] MEDS: ONDANSETRON 4 MG INJ IV (14:52)
[2019-02-25 19:28] LABS: HEPATITIS B SURFACE ANTIGEN NEGATIVE (NEGATIVE)
[2019-02-25] MEDS ORDERED: INSULIN GLARGINE [LANtus] 3 ML PEN SC (21:00)
[2019-02-25] MEDS: TAMSULOSIN (SR) 0.4 MG CAP PO (21:16)
[2019-02-25] MEDS: RANITIDINE 150 MG TAB PO (21:16)
[2019-02-25] MEDS: MIRTAZAPINE 15 MG TAB PO (21:16)
[2019-02-25] MEDS: ATORVASTATIN 80 MG TAB PO (21:16)
[2019-02-25] MEDS: INSULIN GLARGINE [LANTus] (100 UNITS/ML) SYG SC (21:22)
[2019-02-26] MEDS: ACCU-CHEK XX (02:00)
[2019-02-26] MEDS: CLINDAMYCIN 600 MG/D5W (PMX) 50 ML IVPB ×2 (03:09→12:35)
[2019-02-26] MEDS: [UNRECOGNIZED DRUG - OTHER] XX ×2 (05:09→17:22)
[2019-02-26 06:02] LABS: ADD MAN DIFF? NO
[2019-02-26 06:15] LABS: BASOPHIL # 0.1 10^3/ul (0.0-0.1); BASOPHILS % 0.9 % (0.0-2.0); EOSINOPHILS # 0.4 10^3/ul (0.0-0.5); HEMATOCRIT 27.5 % (42.0-52.0); HEMOGLOBIN 8.2 g/dl (14.0-18.0); LYMPHOCYTES # 2.1 10^3/ul (0.8-2.9); LYMPHOCYTES % 19.4 % (15.0-51.0); MEAN CORPUSCULAR HGB CONC 29.8 g/dl (32.0-37.0); MEAN CORPUSCULAR VOLUME 97.2 fl (82.0-101.0); MEAN PLATELET VOLUME 10.5 fl (7.4-10.4); MONOCYTES % 9.8 % (0.0-11.0); NEUTROPHIL # 6.9 10^3/ul (1.6-7.5); PLATELET COUNT 274 10^3/UL (140-415); RED BLOOD COUNT 2.83 10^6/ul (4.70-6.10); RED CELL DISTRIBUTION WIDTH 15.5 % (11.5-14.5)
[2019-02-26 06:15] LABS: WHITE BLOOD COUNT 10.7 10^3/ul (4.8-10.8)
[2019-02-26 06:52] LABS: ANION GAP 16 (5-13); BLOOD UREA NITROGEN 56 mg/dl (7-20); CALCIUM 8.7 mg/dl (8.4-10.2); CARBON DIOXIDE 27 mmol/L (21-31); CHLORIDE 93 mmol/L (97-110); CREATININE 8.25 mg/dl (0.61-1.24); Estimated GFR 7 mL/min (>60); GLUCOSE 95 mg/dl (70-220); MAGNESIUM 1.8 mg/dl (1.7-2.5); PHOSPHORUS 6.2 mg/dl (2.5-4.9); POTASSIUM 5.7 mmol/L (3.5-5.1); SODIUM 136 mmol/L (135-144)
[2019-02-26] MEDS: INSULIN ASPART [NOVOLOG] 3 ML PEN SC ×7 (08:21→21:00)
[2019-02-26] MEDS: CALCIUM ACETATE 667 MG CAP PO ×3 (08:23→17:25)
[2019-02-26] MEDS: HEPARIN 5,000 UNIT/1 ML VIAL SC ×2 (09:00→21:11)
[2019-02-26] MEDS: CITALOPRAM 10 MG TAB PO (12:31)
[2019-02-26] MEDS: FISH OIL 1,000 MG CAP PO ×2 (12:31→21:08)
[2019-02-26] MEDS: NIFEdipine (XL) 30 MG TAB PO (12:32)
[2019-02-26] MEDS: ALLOPURINOL 100 MG TAB PO (12:32)
[2019-02-26] MEDS: FUROSEMIDE 40 MG TAB PO (12:33)
[2019-02-26] MEDS: HYDROCODONE/APAP (5/325) TAB PO (12:40)
[2019-02-26] MEDS ORDERED: VANCOMYCIN IV PER PHARMACY XX (15:30)
[2019-02-26 16:11] LABS: VANCOMYCIN,RANDOM 14.7 ug/ml
[2019-02-26] MEDS: [UNRECOGNIZED DRUG - OTHER] XX (16:21)
[2019-02-26] MEDS: MUPIROCIN 2% 22 GM OINT TOP (16:30)
[2019-02-26] MEDS: VANCOMYCIN 1 GM 250 ML IVPB (21:05)
[2019-02-26] MEDS: RANITIDINE 150 MG TAB PO (21:08)
[2019-02-26] MEDS: TAMSULOSIN (SR) 0.4 MG CAP PO (21:08)
[2019-02-26] MEDS: ATORVASTATIN 80 MG TAB PO (21:08)
[2019-02-26] MEDS: MIRTAZAPINE 15 MG TAB PO (21:08)
[2019-02-26] MEDS: INSULIN GLARGINE [LANTus] (100 UNITS/ML) SYG SC (21:16)
[2019-02-26] MEDS: BACITRACIN 0.5%/ZINC 28.35 GM OINT TOP (21:17)
[2019-02-27] MEDS: ACCU-CHEK XX ×2 (02:00→23:43)
[2019-02-27] MEDS: HYDROCODONE/APAP (5/325) TAB PO ×2 (06:10→22:31)
[2019-02-27] MEDS: INSULIN ASPART [NOVOLOG] 3 ML PEN SC ×7 (08:00→20:47)
[2019-02-27] MEDS: FISH OIL 1,000 MG CAP PO ×2 (08:27→20:24)
[2019-02-27] MEDS: CITALOPRAM 10 MG TAB PO (08:27)
[2019-02-27] MEDS: ALLOPURINOL 100 MG TAB PO (08:27)
[2019-02-27] MEDS: CALCIUM ACETATE 667 MG CAP PO ×3 (08:27→17:19)
[2019-02-27] MEDS: HEPARIN 5,000 UNIT/1 ML VIAL SC ×2 (08:30→20:25)
[2019-02-27] MEDS: NIFEdipine (XL) 30 MG TAB PO ×2 (08:31→08:37)
[2019-02-27] MEDS: FUROSEMIDE 40 MG TAB PO (08:32)
[2019-02-27] MEDS: MUPIROCIN 2% 22 GM OINT TOP ×2 (08:40→20:46)
[2019-02-27] MEDS: BACITRACIN 0.5%/ZINC 28.35 GM OINT TOP ×2 (08:40→20:47)
[2019-02-27] MEDS: RANITIDINE 150 MG TAB PO (20:21)
[2019-02-27] MEDS: TAMSULOSIN (SR) 0.4 MG CAP PO (20:22)
[2019-02-27] MEDS: MIRTAZAPINE 15 MG TAB PO (20:23)
[2019-02-27] MEDS: ATORVASTATIN 80 MG TAB PO (20:24)
[2019-02-27] MEDS: INSULIN GLARGINE [LANTus] (100 UNITS/ML) SYG SC (20:33)
[2019-02-27] MEDS: EPOETIN ALFA-EPBX (ESRD) 10,000 UNIT/ML VIAL SC (22:33)
[2019-02-28 05:28] LABS: ADD MAN DIFF? NO
[2019-02-28 05:34] LABS: WHITE BLOOD COUNT 9.4 10^3/ul (4.8-10.8)
[2019-02-28 05:34] LABS: BASOPHIL # 0.1 10^3/ul (0.0-0.1); EOSINOPHILS # 0.7 10^3/ul (0.0-0.5); EOSINOPHILS % 7.5 % (0.0-7.0); HEMATOCRIT 28.1 % (42.0-52.0); HEMOGLOBIN 8.8 g/dl (14.0-18.0); LYMPHOCYTES # 1.7 10^3/ul (0.8-2.9); LYMPHOCYTES % 18.1 % (15.0-51.0); MEAN CORPUSCULAR HEMOGLOBIN 29.4 pg (29.0-33.0); MEAN CORPUSCULAR HGB CONC 31.3 g/dl (32.0-37.0); MEAN PLATELET VOLUME 10.6 fl (7.4-10.4); MONOCYTE # 0.9 10^3/ul (0.3-0.9); NEUTROPHIL # 5.8 10^3/ul (1.6-7.5); NEUTROPHILS % 61.7 % (39.0-77.0); PLATELET COUNT 293 10^3/UL (140-415); RED BLOOD COUNT 2.99 10^6/ul (4.70-6.10); RED CELL DISTRIBUTION WIDTH 15.4 % (11.5-14.5)
[2019-02-28 06:36] LABS: ANION GAP 15 (5-13); BLOOD UREA NITROGEN 59 mg/dl (7-20); CALCIUM 8.8 mg/dl (8.4-10.2); CARBON DIOXIDE 26 mmol/L (21-31); CHLORIDE 95 mmol/L (97-110); CREATININE 8.56 mg/dl (0.61-1.24); Estimated GFR 6 mL/min (>60); GLUCOSE 100 mg/dl (70-220); POTASSIUM 5.1 mmol/L (3.5-5.1); SODIUM 136 mmol/L (135-144)
[2019-02-28] MEDS: CALCIUM ACETATE 667 MG CAP PO ×3 (07:35→17:21)
[2019-02-28] MEDS: INSULIN ASPART [NOVOLOG] 3 ML PEN SC ×7 (07:35→21:00)
[2019-02-28] MEDS: FISH OIL 1,000 MG CAP PO ×3 (09:00→20:53)
[2019-02-28] MEDS: NIFEdipine (XL) 30 MG TAB PO ×2 (09:00→13:27)
[2019-02-28] MEDS: ALLOPURINOL 100 MG TAB PO ×2 (09:00→13:27)
[2019-02-28] MEDS: HEPARIN 5,000 UNIT/1 ML VIAL SC ×3 (09:00→20:57)
[2019-02-28] MEDS: CITALOPRAM 10 MG TAB PO ×2 (09:00→13:28)
[2019-02-28] MEDS: FUROSEMIDE 40 MG TAB PO ×2 (09:00→13:28)
[2019-02-28] MEDS: MUPIROCIN 2% 22 GM OINT TOP ×2 (13:32→21:02)
[2019-02-28] MEDS: BACITRACIN 0.5%/ZINC 28.35 GM OINT TOP ×2 (13:35→21:00)
[2019-02-28] MEDS: HYDROCODONE/APAP (5/325) TAB PO (15:30)
[2019-02-28] MEDS: ATORVASTATIN 80 MG TAB PO (20:52)
[2019-02-28] MEDS: TAMSULOSIN (SR) 0.4 MG CAP PO (20:53)
[2019-02-28] MEDS: MIRTAZAPINE 15 MG TAB PO (20:53)
[2019-02-28] MEDS: RANITIDINE 150 MG TAB PO (20:53)
[2019-02-28] MEDS: INSULIN GLARGINE [LANTus] (100 UNITS/ML) SYG SC (20:58)
[2019-03-01] MEDS: ACCU-CHEK XX (02:00)
[2019-03-01] MEDS: HYDROCODONE/APAP (5/325) TAB PO ×2 (02:28→10:41)
[2019-03-01 05:23] LABS: ADD MAN DIFF? NO
[2019-03-01 05:31] LABS: WHITE BLOOD COUNT 9.8 10^3/ul (4.8-10.8)
[2019-03-01 05:31] LABS: BASOPHIL # 0.1 10^3/ul (0.0-0.1); BASOPHILS % 0.9 % (0.0-2.0); EOSINOPHILS # 0.6 10^3/ul (0.0-0.5); EOSINOPHILS % 6.3 % (0.0-7.0); HEMATOCRIT 28.8 % (42.0-52.0); LYMPHOCYTES # 1.6 10^3/ul (0.8-2.9); LYMPHOCYTES % 16.7 % (15.0-51.0); MEAN CORPUSCULAR HEMOGLOBIN 29.5 pg (29.0-33.0); MEAN CORPUSCULAR HGB CONC 31.3 g/dl (32.0-37.0); MEAN CORPUSCULAR VOLUME 94.4 fl (82.0-101.0); MEAN PLATELET VOLUME 10.3 fl (7.4-10.4); MONOCYTE # 0.9 10^3/ul (0.3-0.9); MONOCYTES % 8.9 % (0.0-11.0); NEUTROPHIL # 6.4 10^3/ul (1.6-7.5); NEUTROPHILS % 65.3 % (39.0-77.0); PLATELET COUNT 310 10^3/UL (140-415); RED BLOOD COUNT 3.05 10^6/ul (4.70-6.10); RED CELL DISTRIBUTION WIDTH 15.3 % (11.5-14.5)
[2019-03-01 06:22] LABS: ANION GAP 11 (5-13); BLOOD UREA NITROGEN 42 mg/dl (7-20); CALCIUM 9.1 mg/dl (8.4-10.2); CARBON DIOXIDE 29 mmol/L (21-31); CHLORIDE 98 mmol/L (97-110); CREATININE 6.63 mg/dl (0.61-1.24); Estimated GFR 9 mL/min (>60); GLUCOSE 115 mg/dl (70-220); POTASSIUM 4.5 mmol/L (3.5-5.1); SODIUM 138 mmol/L (135-144)
[2019-03-01] MEDS: INSULIN ASPART [NOVOLOG] 3 ML PEN SC ×7 (07:35→20:37)
[2019-03-01] MEDS: CITALOPRAM 10 MG TAB PO (08:16)
[2019-03-01] MEDS: FUROSEMIDE 40 MG TAB PO (08:16)
[2019-03-01] MEDS: FISH OIL 1,000 MG CAP PO ×2 (08:17→20:20)
[2019-03-01] MEDS: MUPIROCIN 2% 22 GM OINT TOP ×2 (08:17→20:30)
[2019-03-01] MEDS: NIFEdipine (XL) 30 MG TAB PO (08:17)
[2019-03-01] MEDS: CALCIUM ACETATE 667 MG CAP PO ×3 (08:17→16:56)
[2019-03-01] MEDS: ALLOPURINOL 100 MG TAB PO (08:17)
[2019-03-01] MEDS: BACITRACIN 0.5%/ZINC 28.35 GM OINT TOP ×2 (08:18→21:00)
[2019-03-01] MEDS: HEPARIN 5,000 UNIT/1 ML VIAL SC ×2 (08:20→20:25)
[2019-03-01 08:25] LABS: VANCOMYCIN,RANDOM 16.3 ug/ml
[2019-03-01] MEDS: LIDOCAINE 1%/EPI 30 ML INJ INJ (12:30)
[2019-03-01] MEDS: HYDROmorphONE 0.5 MG/0.5 ML SYG IV (13:28)
[2019-03-01] MEDS: VANCOMYCIN 1 GM 250 ML IVPB (14:25)
[2019-03-01] MEDS: ATORVASTATIN 80 MG TAB PO (20:20)
[2019-03-01] MEDS: TAMSULOSIN (SR) 0.4 MG CAP PO (20:20)
[2019-03-01] MEDS: RANITIDINE 150 MG TAB PO (20:20)
[2019-03-01] MEDS: MIRTAZAPINE 15 MG TAB PO (20:21)
[2019-03-01] MEDS: INSULIN GLARGINE [LANTus] (100 UNITS/ML) SYG SC (20:25)
[2019-03-02] MEDS: ACCU-CHEK XX (02:00)
[2019-03-02 05:58] LABS: ADD MAN DIFF? NO
[2019-03-02 06:08] LABS: WHITE BLOOD COUNT 9.2 10^3/ul (4.8-10.8)
[2019-03-02 06:08] LABS: BASOPHIL # 0.1 10^3/ul (0.0-0.1); BASOPHILS % 1.1 % (0.0-2.0); EOSINOPHILS # 0.6 10^3/ul (0.0-0.5); EOSINOPHILS % 6.4 % (0.0-7.0); HEMATOCRIT 29.8 % (42.0-52.0); HEMOGLOBIN 9.3 g/dl (14.0-18.0); LYMPHOCYTES # 1.8 10^3/ul (0.8-2.9); LYMPHOCYTES % 19.6 % (15.0-51.0); MEAN CORPUSCULAR HEMOGLOBIN 29.5 pg (29.0-33.0); MEAN CORPUSCULAR HGB CONC 31.2 g/dl (32.0-37.0); MEAN CORPUSCULAR VOLUME 94.6 fl (82.0-101.0); MEAN PLATELET VOLUME 10.5 fl (7.4-10.4); MONOCYTE # 0.9 10^3/ul (0.3-0.9); MONOCYTES % 9.2 % (0.0-11.0); NEUTROPHIL # 5.7 10^3/ul (1.6-7.5); NEUTROPHILS % 61.9 % (39.0-77.0); PLATELET COUNT 314 10^3/UL (140-415); RED BLOOD COUNT 3.15 10^6/ul (4.70-6.10); RED CELL DISTRIBUTION WIDTH 15.8 % (11.5-14.5)
[2019-03-02 06:46] LABS: ANION GAP 13 (5-13); BLOOD UREA NITROGEN 56 mg/dl (7-20); CALCIUM 9.1 mg/dl (8.4-10.2); CARBON DIOXIDE 28 mmol/L (21-31); CHLORIDE 98 mmol/L (97-110); CREATININE 8.36 mg/dl (0.61-1.24); Estimated GFR 7 mL/min (>60); GLUCOSE 72 mg/dl (70-220); POTASSIUM 4.8 mmol/L (3.5-5.1); SODIUM 139 mmol/L (135-144)
[2019-03-02] MEDS: INSULIN ASPART [NOVOLOG] 3 ML PEN SC ×7 (07:35→21:00)
[2019-03-02] MEDS: ALLOPURINOL 100 MG TAB PO (08:18)
[2019-03-02] MEDS: CITALOPRAM 10 MG TAB PO (08:18)
[2019-03-02] MEDS: FISH OIL 1,000 MG CAP PO ×2 (08:18→20:26)
[2019-03-02] MEDS: CALCIUM ACETATE 667 MG CAP PO ×3 (08:18→17:07)
[2019-03-02] MEDS: HEPARIN 5,000 UNIT/1 ML VIAL SC ×2 (08:19→20:28)
[2019-03-02] MEDS: MUPIROCIN 2% 22 GM OINT TOP ×2 (08:21→20:30)
[2019-03-02] MEDS: BACITRACIN 0.5%/ZINC 28.35 GM OINT TOP ×2 (08:22→20:30)
[2019-03-02] MEDS: FUROSEMIDE 40 MG TAB PO (08:25)
[2019-03-02] MEDS: NIFEdipine (XL) 30 MG TAB PO (08:27)
[2019-03-02] MEDS: EPOETIN ALFA-EPBX (ESRD) 10,000 UNIT/ML VIAL SC (17:08)
[2019-03-02] MEDS: HYDROCODONE/APAP (5/325) TAB PO ×2 (19:47→20:47)
[2019-03-02] MEDS: RANITIDINE 150 MG TAB PO (20:25)
[2019-03-02] MEDS: TAMSULOSIN (SR) 0.4 MG CAP PO (20:25)
[2019-03-02] MEDS: MIRTAZAPINE 15 MG TAB PO (20:26)
[2019-03-02] MEDS: ATORVASTATIN 80 MG TAB PO (20:26)
[2019-03-02] MEDS: INSULIN GLARGINE [LANTus] (100 UNITS/ML) SYG SC (20:28)
[2019-03-03] MEDS: ACCU-CHEK XX (01:12)
[2019-03-03 05:01] LABS: ADD MAN DIFF? NO
[2019-03-03 05:05] LABS: BASOPHIL # 0.1 10^3/ul (0.0-0.1); EOSINOPHILS # 0.6 10^3/ul (0.0-0.5); EOSINOPHILS % 7.2 % (0.0-7.0); HEMATOCRIT 30.6 % (42.0-52.0); HEMOGLOBIN 9.5 g/dl (14.0-18.0); LYMPHOCYTES # 1.9 10^3/ul (0.8-2.9); LYMPHOCYTES % 22.1 % (15.0-51.0); MEAN CORPUSCULAR HEMOGLOBIN 29.2 pg (29.0-33.0); MEAN CORPUSCULAR VOLUME 94.2 fl (82.0-101.0); MEAN PLATELET VOLUME 10.1 fl (7.4-10.4); MONOCYTE # 0.7 10^3/ul (0.3-0.9); MONOCYTES % 8.5 % (0.0-11.0); NEUTROPHIL # 5.1 10^3/ul (1.6-7.5); NEUTROPHILS % 59.5 % (39.0-77.0); PLATELET COUNT 318 10^3/UL (140-415); RED BLOOD COUNT 3.25 10^6/ul (4.70-6.10); RED CELL DISTRIBUTION WIDTH 15.7 % (11.5-14.5)
[2019-03-03 05:05] LABS: WHITE BLOOD COUNT 8.6 10^3/ul (4.8-10.8)
[2019-03-03 05:32] LABS: PHOSPHORUS 6.8 mg/dl (2.5-4.9)
[2019-03-03 05:32] LABS: MAGNESIUM 2.2 mg/dl (1.7-2.5)
[2019-03-03 05:36] LABS: ANION GAP 15 (5-13); BLOOD UREA NITROGEN 62 mg/dl (7-20); CALCIUM 8.9 mg/dl (8.4-10.2); CARBON DIOXIDE 25 mmol/L (21-31); CHLORIDE 98 mmol/L (97-110); CREATININE 9.76 mg/dl (0.61-1.24); Estimated GFR 5 mL/min (>60); GLUCOSE 117 mg/dl (70-220); POTASSIUM 5.1 mmol/L (3.5-5.1); SODIUM 138 mmol/L (135-144)
[2019-03-03] MEDS: INSULIN ASPART [NOVOLOG] 3 ML PEN SC ×7 (07:35→20:46)
[2019-03-03] MEDS: CALCIUM ACETATE 667 MG CAP PO ×3 (08:39→17:04)
[2019-03-03] MEDS: CITALOPRAM 10 MG TAB PO (08:39)
[2019-03-03] MEDS: ALLOPURINOL 100 MG TAB PO (08:39)
[2019-03-03] MEDS: FISH OIL 1,000 MG CAP PO ×2 (08:39→20:37)
[2019-03-03] MEDS: HEPARIN 5,000 UNIT/1 ML VIAL SC ×2 (08:40→20:51)
[2019-03-03] MEDS: BACITRACIN 0.5%/ZINC 28.35 GM OINT TOP ×2 (08:41→20:49)
[2019-03-03] MEDS: MUPIROCIN 2% 22 GM OINT TOP ×2 (08:41→20:48)
[2019-03-03] MEDS: NIFEdipine (XL) 30 MG TAB PO ×2 (08:44→14:38)
[2019-03-03] MEDS: FUROSEMIDE 40 MG TAB PO ×2 (08:44→14:39)
[2019-03-03] MEDS: RANITIDINE 150 MG TAB PO (20:37)
[2019-03-03] MEDS: ATORVASTATIN 80 MG TAB PO (20:37)
[2019-03-03] MEDS: TAMSULOSIN (SR) 0.4 MG CAP PO (20:37)
[2019-03-03] MEDS: MIRTAZAPINE 15 MG TAB PO (20:38)
[2019-03-03] MEDS: INSULIN GLARGINE [LANTus] (100 UNITS/ML) SYG SC (20:52)
[2019-03-04] MEDS: HYDROCODONE/APAP (5/325) TAB PO (00:33)
[2019-03-04] MEDS: ACCU-CHEK XX (01:18)
[2019-03-04 05:34] LABS: ADD MAN DIFF? NO
[2019-03-04 05:39] LABS: BASOPHIL # 0.1 10^3/ul (0.0-0.1); EOSINOPHILS # 0.7 10^3/ul (0.0-0.5); EOSINOPHILS % 7.2 % (0.0-7.0); HEMATOCRIT 31.1 % (42.0-52.0); HEMOGLOBIN 9.5 g/dl (14.0-18.0); LYMPHOCYTES % 21.6 % (15.0-51.0); MEAN CORPUSCULAR HEMOGLOBIN 29.1 pg (29.0-33.0); MEAN CORPUSCULAR HGB CONC 30.5 g/dl (32.0-37.0); MEAN CORPUSCULAR VOLUME 95.4 fl (82.0-101.0); MEAN PLATELET VOLUME 10.3 fl (7.4-10.4); MONOCYTE # 0.8 10^3/ul (0.3-0.9); NEUTROPHIL # 5.4 10^3/ul (1.6-7.5); PLATELET COUNT 319 10^3/UL (140-415); RED BLOOD COUNT 3.26 10^6/ul (4.70-6.10); RED CELL DISTRIBUTION WIDTH 15.9 % (11.5-14.5)
[2019-03-04 06:06] LABS: PHOSPHORUS 5.3 mg/dl (2.5-4.9)
[2019-03-04 06:06] LABS: MAGNESIUM 2.1 mg/dl (1.7-2.5)
[2019-03-04 06:12] LABS: ANION GAP 11 (5-13); BLOOD UREA NITROGEN 39 mg/dl (7-20); CARBON DIOXIDE 29 mmol/L (21-31); CHLORIDE 98 mmol/L (97-110); CREATININE 7.13 mg/dl (0.61-1.24); Estimated GFR 8 mL/min (>60); GLUCOSE 95 mg/dl (70-220); POTASSIUM 4.6 mmol/L (3.5-5.1); SODIUM 138 mmol/L (135-144)
[2019-03-04] MEDS: INSULIN ASPART [NOVOLOG] 3 ML PEN SC ×7 (07:35→21:00)
[2019-03-04] MEDS: CITALOPRAM 10 MG TAB PO (08:21)
[2019-03-04] MEDS: CALCIUM ACETATE 667 MG CAP PO ×3 (08:21→17:29)
[2019-03-04] MEDS: ALLOPURINOL 100 MG TAB PO (08:23)
[2019-03-04] MEDS: FISH OIL 1,000 MG CAP PO ×2 (08:23→20:38)
[2019-03-04] MEDS: FUROSEMIDE 40 MG TAB PO (08:23)
[2019-03-04] MEDS: NIFEdipine (XL) 30 MG TAB PO (08:23)
[2019-03-04] MEDS: BACITRACIN 0.5%/ZINC 28.35 GM OINT TOP ×2 (08:24→21:07)
[2019-03-04] MEDS: MUPIROCIN 2% 22 GM OINT TOP ×2 (08:24→20:48)
[2019-03-04] MEDS: HEPARIN 5,000 UNIT/1 ML VIAL SC ×2 (08:37→20:43)
[2019-03-04] MEDS: EPOETIN ALFA-EPBX (ESRD) 10,000 UNIT/ML VIAL SC (17:28)
[2019-03-04] MEDS: MIRTAZAPINE 15 MG TAB PO (20:38)
[2019-03-04] MEDS: ATORVASTATIN 80 MG TAB PO (20:38)
[2019-03-04] MEDS: TAMSULOSIN (SR) 0.4 MG CAP PO (20:38)
[2019-03-04] MEDS: RANITIDINE 150 MG TAB PO (20:38)
[2019-03-04] MEDS: INSULIN GLARGINE [LANTus] (100 UNITS/ML) SYG SC (20:42)
[2019-03-05] MEDS: ACCU-CHEK XX (02:00)
[2019-03-05 05:17] LABS: ADD MAN DIFF? NO
[2019-03-05 05:22] LABS: BASOPHIL # 0.1 10^3/ul (0.0-0.1); BASOPHILS % 0.9 % (0.0-2.0); EOSINOPHILS # 0.7 10^3/ul (0.0-0.5); EOSINOPHILS % 6.6 % (0.0-7.0); HEMATOCRIT 30.8 % (42.0-52.0); HEMOGLOBIN 9.5 g/dl (14.0-18.0); LYMPHOCYTES # 2.2 10^3/ul (0.8-2.9); MEAN CORPUSCULAR HGB CONC 30.8 g/dl (32.0-37.0); MEAN CORPUSCULAR VOLUME 93.9 fl (82.0-101.0); MEAN PLATELET VOLUME 9.9 fl (7.4-10.4); MONOCYTE # 0.8 10^3/ul (0.3-0.9); MONOCYTES % 7.8 % (0.0-11.0); NEUTROPHIL # 6.1 10^3/ul (1.6-7.5); NEUTROPHILS % 61.4 % (39.0-77.0); PLATELET COUNT 296 10^3/UL (140-415); RED BLOOD COUNT 3.28 10^6/ul (4.70-6.10); RED CELL DISTRIBUTION WIDTH 15.9 % (11.5-14.5)
[2019-03-05 05:41] LABS: ANION GAP 12 (5-13); BLOOD UREA NITROGEN 50 mg/dl (7-20); CARBON DIOXIDE 27 mmol/L (21-31); CHLORIDE 98 mmol/L (97-110); Estimated GFR 6 mL/min (>60); GLUCOSE 96 mg/dl (70-220); POTASSIUM 4.6 mmol/L (3.5-5.1); SODIUM 137 mmol/L (135-144)
[2019-03-05 05:44] LABS: VANCOMYCIN,RANDOM 18.1 ug/ml
[2019-03-05 05:47] LABS: PHOSPHORUS 5.9 mg/dl (2.5-4.9)
[2019-03-05 05:47] LABS: MAGNESIUM 2.2 mg/dl (1.7-2.5)
[2019-03-05] MEDS: INSULIN ASPART [NOVOLOG] 3 ML PEN SC ×4 (07:35→12:38)
[2019-03-05] MEDS: FISH OIL 1,000 MG CAP PO (08:21)
[2019-03-05] MEDS: NIFEdipine (XL) 30 MG TAB PO (08:21)
[2019-03-05] MEDS: CITALOPRAM 10 MG TAB PO (08:22)
[2019-03-05] MEDS: CALCIUM ACETATE 667 MG CAP PO ×2 (08:22→12:39)
[2019-03-05] MEDS: ALLOPURINOL 100 MG TAB PO (08:22)
[2019-03-05] MEDS: FUROSEMIDE 40 MG TAB PO (08:22)
[2019-03-05] MEDS: BACITRACIN 0.5%/ZINC 28.35 GM OINT TOP (08:23)
[2019-03-05] MEDS: MUPIROCIN 2% 22 GM OINT TOP (08:23)
[2019-03-05] MEDS: HEPARIN 5,000 UNIT/1 ML VIAL SC (08:29)
[2019-03-05] MEDS ORDERED: VANCOMYCIN 1 GM 250 ML IVPB (21:00)
== END 2019-03-05 17:35 | disposition home health service (06) | DRG 871 ==
LOC: MS3 02-28 00:05 → PP2 02-25 00:56 → FTE 20:22
PROC: 5A1D70Z Performance of Urinary Filtration, Intermittent, Less than 6 Hours Per Day (ICD-10-PCS; 2019-02-26)
PROC: 0H9KXZZ Drainage of Right Lower Leg Skin, External Approach (ICD-10-PCS; principal; 2019-03-01)
DX: A41.9 Sepsis, unspecified organism (principal); N18.6 End stage renal disease; L03.115 Cellulitis of right lower limb; I12.0 Hypertensive chronic kidney disease with stage 5 chronic kidney disease or end stage renal disease; L02.415 Cutaneous abscess of right lower limb; N39.0 Urinary tract infection, site not specified; N17.9 Acute kidney failure, unspecified; Z99.2 Dependence on renal dialysis; D64.9 Anemia, unspecified; Z79.4 Long term (current) use of insulin; B95.62 Methicillin resistant Staphylococcus aureus infection as the cause of diseases classified elsewhere; Z22.322 Carrier or suspected carrier of Methicillin resistant Staphylococcus aureus; E87.6 Hypokalemia; E10.22 Type 1 diabetes mellitus with diabetic chronic kidney disease
CPT/HCPCS: 36415; 73562; 73630; 73721; 80048; 80053; 80202; 81001; 82962; 83690; 83735; 84100; 85025; 87040-91; 87070; 87081; 87340; 90935; 96365; 96367; 96375; 97161; 99285-25